=== PATIENT | female | born 1965 ===

== ENCOUNTER 2021-10-20 19:53 | Inpatient (IN) | payer OTHER ==
[~2021-10-20] VITALS: Ht 167.6 cm; Wt 117.9 kg
--- NOTE | 2021-10-20 21:03 | NUR ---
RECEIVED PATIENT TO UNIT AT 1925. ALERT AND ORIENTED X'S 4.NO ACUTE DISTRESS NOTED. DENIES PAIN OR DISCOMFORT. ORIENTED PATIENT TO ROOM AND CALL HEBERT, VERBALIZED UNDERSTANDING.
[2021-10-21 03:53] LABS: BASOPHILS ABSOLUTE AUTO 0.02 K/mm3 (0.00-0.23); BASOPHILS PERCENT AUTO 0 % (0-2); EOSINOPHILS PERCENT AUTO 1 % (0-6); Hematocrit 33.6 % (33.0-51.0); Hemoglobin 10.6 g/dL (11.5-16.0); IMMATURE GRAN ABSOLUTE AUTO 0.09 K/mm3 (0.00-0.10); IMMATURE GRAN PERCENT AUTO 1 % (0-1); LYMPHOCYTES ABSOLUTE AUTO 1.25 K/mm3 (0.84-5.20); LYMPHOCYTES PERCENT AUTO 11 % (21-46); MONOCYTES ABSOLUTE AUTO 0.58 K/mm3 (0.16-1.47); MONOCYTES PERCENT AUTO 5 % (4-13); Mean Corpuscular HGB 27.4 pg (26.0-34.0); Mean Corpuscular HGB Conc 31.5 g/dL (31.5-36.5); Mean Corpuscular Volume 87 fL (80-100); Mean Platelet Volume 9.7 fL (9.1-12.4); NEUTROPHILS ABSOLUTE AUTO 9.27 K/mm3 (1.96-9.15); NEUTROPHILS PERCENT AUTO 82 % (41-73); Platelet Count 152 K/mm3 (150-400); RDW Coefficient Variation 21.3 % (11.7-14.2); RDW Standard Deviation 66.4 fL (35.1-46.3); Red Blood Cell Count 3.87 M/mm3 (3.80-5.20); White Blood Cell Count 11.31 K/mm3 (4.00-11.30)
[2021-10-21 04:07] LABS: International Normalized Ratio 1.06; Prothrombin Time Results 11.1 Sec (9.7-11.5)
[2021-10-21 04:21] LABS: Albumin, Blood 2.5 g/dL (3.4-5.0); Albumin/Globulin Ratio 0.5 (0.8-1.8); Bilirubin, Total 0.5 mg/dL (0.1-1.0); Bun/Creatinine Ratio 16.5 (12.0-20.0); Calcium, Blood 7.9 mg/dL (8.5-10.1); Creatinine, Blood 1.21 mg/dL (0.40-1.00); Globulin, Blood 4.9 g/dL (2.2-4.0); Potassium, Blood 2.8 mmol/L (3.5-5.5); Total Protein, Blood 7.4 g/dL (6.4-8.2)
--- NOTE | 2021-10-21 04:50 | NUR ---
MEDICATE WITH NORCO 5/325MG X'S 1 FOR PAIN MANAGEMENT, EFFECTIVE RELIEF. HAD TWO LOOSE STOOLS, SMALL AMOUNT OF DARK RED BLOOD NOTED ON PAD. CURRENTLY RESTING PEACEFULLY IN BED, NO ACUTE DISTRESS NOTED. SAFETY MAINTAINED, CALL HEBERT IN REACH.
--- NOTE | 2021-10-21 07:16 | NUR ---
POTASSIUM 2.8, NOTIFIED DR. ALSTON, RECEIVED ORDER FOR POTASSIUM 40MEQ IV. AM NURSE NOTIFIED.
--- NOTE | 2021-10-21 11:43 | NUR ---
COVID TEST AND EKG COMPLETED
[2021-10-21 12:00] LABS: Influenza A, PCR NEGATIVE (NEGATIVE); Influenza B, PCR NEGATIVE (NEGATIVE); Resp Syncytial Virus, PCR NEGATIVE (NEGATIVE); SARS-Cov-2 (COVID-19) PCR, MMC NEGATIVE (NEGATIVE)
--- NOTE | 2021-10-21 13:53 | NUR ---
PT TRANSFERED FROM ROOM TO [facility] VIA BED. History, Chart, Medications and Allergies reviewed before start of procedure. Lungs clear T/O to Auscultation. Patient confirms NPO status and agrees with scheduled surgery. Pre-Op teaching done. Pt verbalizes understanding.
--- NOTE | 2021-10-21 14:15 | NUR ---
PT TO OR AT ABOUT 1330
[2021-10-21] MEDS ORDERED: ACET500 PO (15:06)
[2021-10-21] MEDS ORDERED: CELE100 PO (15:06)
[2021-10-21] MEDS ORDERED: HYDCOR2.5C PR (15:07)
[2021-10-21] MEDS ORDERED: HYDACE25S PR (15:09)
[2021-10-21] MEDS ORDERED: EUTHYROX150 MCG PO (15:10)
[2021-10-21] MEDS ORDERED: METO10 PO (15:11)
[2021-10-21] MEDS ORDERED: ONDA4 PO (15:12)
[2021-10-21] MEDS ORDERED: PANT40 PO (15:12)
[2021-10-21] MEDS ORDERED: POTCHL20ER PO (15:13)
[2021-10-21] MEDS ORDERED: PROM25 PO (15:14)
[2021-10-21] MEDS ORDERED: TRAZ100 PO (15:14)
--- NOTE | 2021-10-21 15:21 | NUR ---
ATTEMPTED TO CALL PT MOTHER ROBIN TO GIVE AN UPDATE, NO ANSWER, LEFT MESSAGE.
--- NOTE | 2021-10-21 15:43 | NUR ---
IV CIPRO GIVEN LATE DUE TO POTASSIUM INFUSIONS, CALLED PHARMACY, PER PHARMACIST ABLE TO GIVE 2100 CIPRO DOSE AT 2200. WILL MAKE NOC RN AWARE.
--- NOTE | 2021-10-21 15:54 | NUR ---
ARRIVED INTO PACU RECIEVED REPORT VSS AFTER 2 MINUTES PLACED ON NC02 AT 2 LITERS TO ELEVATE SAT UP. PATIENT WAKES FOLLOWS COMMANDS AND FALLS BACK TO SLEEP. DENIES PAIN WITH SHAKE OF HEAD WHEN ASKED.
--- NOTE | 2021-10-21 16:13 | NUR ---
TO SURGICAL FLOOR WITH RN. VSS GAVE REPORT TO SARTHAK ZAMORA. DENIES PAIN
--- NOTE | 2021-10-21 17:24 | NUR ---
POST OP: REPORT RECEIVED FROM [employer] ANALYSTSERA PANDEY. PT TO UNIT AT ABOUT 1630. PT IS A/O, VSS. HAD SMALL AMT OF EMESIS, NAUSEA RESLOVED AFTER EMESIS. PT GIVEN REGLAN AND ASKED FOR TEA AND ICE CHIPS. WILL MONITOR. PT REFUSED ASSESSMENT OF I&D SITE, SAYING THAT IT WOULD HURT TO MUCH TO TURN. 1 NARCO GIVEN, WILL ATTEMPT REASSESSMENT LATER AND CTM.
--- NOTE | 2021-10-21 18:07 | NUR ---
SUMMARY: NO CHANGE SINCE POST OP. SURGICAL SITE CDI, GAUZE HELD IN PLACE WITH MESH UNDERWARE. WILL REPORT TO NOC RN
[2021-10-22 05:37] LABS: C-REACTIVE PROTEIN, EXT RANGE 4.18 mg/dL (0.000-0.300); Magnesium, Blood 1.5 mg/dL (1.6-2.4)
--- NOTE | 2021-10-22 05:38 | NUR ---
ALERT AND ORIENTED XS 4. MEDICATED X'S 1 DUE TO C/O RECTAL PAIN, EFFECTIVE RELIEF. MIN ASSIST TO BSC, PATIENT VOIDING WITH LG SOFT BOWEL MOVEMENT. MODERATE AMOUNT OF BRIGHT RED BLOOD NOTED ON RECTAL DRESSING. MAIA DRAINS IN PLACE. CLEANED AREA, APPLIED GAUZE AND PAD. RESTING PEACEFULLY IN BED, UP THROUGH NIGHT WATCHING TV. SAFETY MAINTAINED, CALL HEBERT IN REACH.
[2021-10-22 05:39] LABS: Albumin, Blood 2.2 g/dL (3.4-5.0); Albumin/Globulin Ratio 0.5 (0.8-1.8); Bilirubin, Total 0.3 mg/dL (0.1-1.0); Bun/Creatinine Ratio 10.9 (12.0-20.0); Creatinine, Blood 1.01 mg/dL (0.40-1.00); Globulin, Blood 4.1 g/dL (2.2-4.0); Phosphorus, Blood 1.8 mg/dL (2.5-4.9); Potassium, Blood 3.1 mmol/L (3.5-5.5); Total Protein, Blood 6.3 g/dL (6.4-8.2)
[2021-10-22 07:12] LABS: BASOPHILS ABSOLUTE AUTO 0.05 K/mm3 (0.00-0.23); BASOPHILS PERCENT AUTO 1 % (0-2); EOSINOPHILS ABSOLUTE AUTO 0.24 K/mm3 (0.00-0.68); EOSINOPHILS PERCENT AUTO 3 % (0-6); Hematocrit 31.6 % (33.0-51.0); Hemoglobin 9.9 g/dL (11.5-16.0); IMMATURE GRAN ABSOLUTE AUTO 0.12 K/mm3 (0.00-0.10); IMMATURE GRAN PERCENT AUTO 1 % (0-1); LYMPHOCYTES ABSOLUTE AUTO 1.23 K/mm3 (0.84-5.20); LYMPHOCYTES PERCENT AUTO 13 % (21-46); MONOCYTES ABSOLUTE AUTO 0.55 K/mm3 (0.16-1.47); MONOCYTES PERCENT AUTO 6 % (4-13); Mean Corpuscular HGB Conc 31.3 g/dL (31.5-36.5); Mean Corpuscular Volume 90 fL (80-100); Mean Platelet Volume 9.9 fL (9.1-12.4); NEUTROPHILS ABSOLUTE AUTO 7.39 K/mm3 (1.96-9.15); NEUTROPHILS PERCENT AUTO 77 % (41-73); Platelet Count 143 K/mm3 (150-400); RDW Coefficient Variation 21.9 % (11.7-14.2); RDW Standard Deviation 70.6 fL (35.1-46.3); Red Blood Cell Count 3.53 M/mm3 (3.80-5.20); White Blood Cell Count 9.58 K/mm3 (4.00-11.30)
--- NOTE | 2021-10-22 19:25 | NUR ---
SUMMARY: PT IS POD1 I&D OF PERIRECTAL ABSCESS. SURGICAL SITE WNL AND DRAINING SMALL AMTS OF DARK RED/GREEN DRAINAGE, GAUZE CHANGED PRN. PLAN IS FOR CONTINUED ANTIBIOTICS AND POSSIBLE DC TOMORROW. PT WORKED WITH THERAPY TODAY, MOVES WELL WITH SBA. MEDICATED FOR PAIN PER EMAR. NO ACUTE SAFETY CONCERNS.
[2021-10-23 05:10] LABS: BASOPHILS ABSOLUTE AUTO 0.04 K/mm3 (0.00-0.23); BASOPHILS PERCENT AUTO 1 % (0-2); EOSINOPHILS ABSOLUTE AUTO 0.33 K/mm3 (0.00-0.68); EOSINOPHILS PERCENT AUTO 4 % (0-6); Hematocrit 28.6 % (33.0-51.0); IMMATURE GRAN ABSOLUTE AUTO 0.09 K/mm3 (0.00-0.10); IMMATURE GRAN PERCENT AUTO 1 % (0-1); LYMPHOCYTES ABSOLUTE AUTO 1.01 K/mm3 (0.84-5.20); LYMPHOCYTES PERCENT AUTO 13 % (21-46); MONOCYTES ABSOLUTE AUTO 0.36 K/mm3 (0.16-1.47); MONOCYTES PERCENT AUTO 5 % (4-13); Mean Corpuscular HGB 27.5 pg (26.0-34.0); Mean Corpuscular HGB Conc 31.5 g/dL (31.5-36.5); Mean Corpuscular Volume 88 fL (80-100); Mean Platelet Volume 9.5 fL (9.1-12.4); NEUTROPHILS ABSOLUTE AUTO 5.68 K/mm3 (1.96-9.15); NEUTROPHILS PERCENT AUTO 76 % (41-73); Platelet Count 136 K/mm3 (150-400); RDW Coefficient Variation 21.8 % (11.7-14.2); RDW Standard Deviation 69.5 fL (35.1-46.3); Red Blood Cell Count 3.27 M/mm3 (3.80-5.20); White Blood Cell Count 7.51 K/mm3 (4.00-11.30)
[2021-10-23 05:33] LABS: Alanine Aminotransfer (ALT/SGP 21 U/L (12-78); Albumin, Blood 2.1 g/dL (3.4-5.0); Albumin/Globulin Ratio 0.5 (0.8-1.8); Alk Phos 54 U/L (50-136); Anion Gap 8 mmol/L (6-16); Aspartate Aminotrans (AST/SGOT 10 U/L (12-37); Bilirubin, Total 0.2 mg/dL (0.1-1.0); Blood Urea Nitrogen 7 mg/dL (8-24); Bun/Creatinine Ratio 7.7 (12.0-20.0); CO2, Blood 18 mmol/L (21-32); Calcium, Blood 7.4 mg/dL (8.5-10.1); Chloride, Blood 112 mmol/L (98-108); Creatinine, Blood 0.91 mg/dL (0.40-1.00); Globulin, Blood 4.2 g/dL (2.2-4.0); Glomerular Filtration Rate >60 (60-); Glucose, Blood 95 mg/dL (70-99); Magnesium, Blood 1.8 mg/dL (1.6-2.4); Phosphorus, Blood 3.4 mg/dL (2.5-4.9); Potassium, Blood 3.2 mmol/L (3.5-5.5); Sodium, Blood 138 mmol/L (136-145); Total Protein, Blood 6.3 g/dL (6.4-8.2)
--- NOTE | 2021-10-23 05:47 | NUR ---
MEDICATED X'S 1 FOR PAIN MANAGEMENT, EFFECTIVE RELIEF. NO ACUTE DISTRESS NOTED, RESPIRATIONS EVEN AND UNLABORED. MAIA DRAINS IN PLACE, SMALL AMOUNT OF SANGUINOUS FLUID TO PAD. SLEPT WELL THROUGH NIGHT. SAFETY MAINTAINED, CALL HEBERT IN REACH.
[2021-10-23] MEDS ORDERED: CALCIUM 600-VI1 EAC6 PO (11:13)
[2021-10-23] MEDS ORDERED: CIPR500 PO (11:14)
[2021-10-23] MEDS ORDERED: HYDR1TAB94 PO (11:14)
[2021-10-23] MEDS ORDERED: MAGNESIUM OXID400 M1 PO (11:15)
[2021-10-23] MEDS ORDERED: FLAGYL500 M1 PO (11:15)
[2021-10-23] MEDS ORDERED: VISBIOME 112.51 EACH PO (11:16)
--- NOTE | 2021-10-23 13:38 | NUR ---
DISCHARGE SUMMARY PT POD #1 FOR I&D OF CARLOS RECTAL ABSCESS. PT EXPERIENCING NAUSEA FROM ANTIBIOTICS AND TREATED PER EMR. WORKED WITH [facility] AND RECOMMENDED FOR HOME HEALTH. PT DECLINED BECAUSE THEY ARE ALREADY RECEIVING OUT PATIENT THERAPY. MAIA DRAINS TO BE REMOVED ON 10/30/21. CALLED PT'S PCP AT [facility] WITH DR. BARNETT TO CONFIRM THAT THIS CAN BE DONE. PCP OFFICE TO RETURN PHONE CALL WITH ANSWER. IF UNABLE TO HAVE DRAINS REMOVED IN [place] THE PT WILL RETURN TO [facility] AND HAVE THEM REMOVED HERE. WENT OVER WOUND CARE INSTRUCTIONS WITH PT AND DAUGHTER AND THEY EXHIBITED UNDERSTANDING. DC'D HOME WITH DAUGHTER.
== END 2021-10-23 13:42 | disposition home health service (06) | DRG 345 ==
LOC: SURS 19:53
PROVIDERS: Family Medicine; Surgery; ADMIT Internal Medicine
PROC: 0D9P0ZZ Drainage of Rectum, Open Approach (ICD-10-PCS; principal; 2021-10-21 13:15)
DX: K61.1 Rectal abscess (principal); Z68.41 Body mass index [BMI] 40.0-44.9, adult; Z20.822 Contact with and (suspected) exposure to COVID-19; E87.6 Hypokalemia; E03.9 Hypothyroidism, unspecified; R74.8 Abnormal levels of other serum enzymes; E66.01 Morbid (severe) obesity due to excess calories; K31.84 Gastroparesis; N18.30 Chronic kidney disease, stage 3 unspecified; K62.89 Other specified diseases of anus and rectum; K52.9 Noninfective gastroenteritis and colitis, unspecified; F17.210 Nicotine dependence, cigarettes, uncomplicated; E86.0 Dehydration; E83.39 Other disorders of phosphorus metabolism; R26.9 Unspecified abnormalities of gait and mobility; E83.42 Hypomagnesemia; Z86.16 Personal history of COVID-19; Z74.01 Bed confinement status; Z79.899 Other long term (current) drug therapy; Z79.1 Long term (current) use of non-steroidal anti-inflammatories (NSAID); Z88.8 Allergy status to other drugs, medicaments and biological substances; Z88.5 Allergy status to narcotic agent
CPT/HCPCS: 0241U; 36415; 36416; 72193; 80053; 83735; 84100; 85025; 85610; 86140; 93005; 93010; 97110; 97162; A9270; C9113; J0744; J2250; J2550; J2704; J3010; J3480; J7040; J7060; J7120; Q9967